=== PATIENT | female | born 1965 | race Caucasian/White ===

== ENCOUNTER 2022-03-22 16:20 | Emergency (ER) | payer MEDICAID, OTHER ==
[~2022-03-22] VITALS: Ht 152.4 cm; Wt 85.3 kg
[~2022-03-22 16:20] MED LIST: ASPI-1822 PO; ATOR40TA PO; CEPH250C16 PO; FERR325E14 PO; HYDR-2853 PO; LEVO0.083 PO; PRAM0.5T4 PO
[2022-03-22 16:37] VITALS: BP 130/87
== END 2022-03-22 21:53 | disposition left against medical advice (07) ==
LOC: MED 16:20
DX: R07.9 Chest pain, unspecified (principal); Z53.21 Procedure and treatment not carried out due to patient leaving prior to being seen by health care provider
CPT/HCPCS: 71045; 93005; 99281